=== PATIENT | male | born 1960 ===

== ENCOUNTER → 2017-04-04 | Outpatient (CLI) | payer OTHER ==
[~2017-04-04] MED LIST: ASPI-757 PO; MELO-207 PO; NAPR220C12 PO; OXYC-865 PO
--- NOTE | 2017-04-04 17:02 | RADIOLOGY IMAGING REPORT ---
FACILITY: [facility] PATIENT NAME: Kory Goddard : 1960 MR: [id number] V: [id number] EXAM DATE: ORDERING PHYSICIAN: JERICA COPPOLA TECHNOLOGIST: Location: [facility] - [place] Patient: Kory Goddard : 1960 Visit/Account:[id number] Date of Sevice: 04/04/2017 HIP LEFT Indication: Hip pain. Comparison: None available Findings: There is no acute fracture or dislocation of the left hip. Mild degenerative changes left hip joint noted IMPRESSION: 1. No acute osseous abnormality left hip as above Report Dictated By: Suman Rodriguez at 04/04/2017 4:55 PM Report E-Signed By: Suman Rodriguez at 04/04/2017 4:56 PM WSN:[id number]
== END ==
LOC: LAB 15:58
PROVIDERS: ATTEND Emergency Medicine
DX: M25.552 Pain in left hip (principal); Z80.42 Family history of malignant neoplasm of prostate
CPT/HCPCS: 36415; 84153

== ENCOUNTER → 2018-11-18 | Outpatient (CLI) | payer OTHER ==
[2018-11-18 08:03] LABS: PLATELET COUNT, AUTOMATED 218 K/uL (150-450)
== END ==
LOC: LAB 08:00 → EDSTATUS 12-03 07:00
PROVIDERS: ATTEND Orthopaedic Surgery
DX: Z01.812 Encounter for preprocedural laboratory examination (principal); Z01.810 Encounter for preprocedural cardiovascular examination; M16.12 Unilateral primary osteoarthritis, left hip
CPT/HCPCS: 36415; 81001; 82040; 82247; 82310; 82374; 82435; 82565; 82947; 84075; 84132; 84155; 84295; 84450; 84460; 84520; 85025

== ENCOUNTER → 2018-11-19 | Outpatient (CLI) | payer OTHER ==
--- NOTE | 2018-11-20 08:35 | EKG ---
[place] [facility] [place]IENT NAME: THEODORE VILLARREAL : [id number] MR: [id number] V: [id number] EXAM DATE: ORDERING PHYSICIAN: JERICA COPPOLA TECHNOLOGIST: ABDULAZIZ PONCE Test Reason : Blood Pressure : / mmHG Vent. Rate : 056 BPM Atrial Rate : 056 BPM P-R Int : 142 ms QRS Dur : 108 ms QT Int : 446 ms P-R-T Axes : 022 083 049 degrees QTc Int : 430 ms Sinus bradycardia Otherwise normal ECG No previous ECGs available Referred By: RIAN Confirmed By:
== END ==
LOC: LAB 08:46
PROVIDERS: ATTEND Emergency Medicine
DX: Z12.5 Encounter for screening for malignant neoplasm of prostate (principal)
CPT/HCPCS: 84153